=== PATIENT | male | born 1965 | race Caucasian/White ===

== ENCOUNTER 2023-08-11 10:26 | Inpatient (IN) ==
--- NOTE | 2023-08-11 10:35 | Emergency Department Note ---
History of Present Illness General Chief complaint: Back Injury/Pain Stated complaint: FALL, BACK INJURY, WC, HIGH BP Time Seen by Provider: 08/11/23 10:35 History of Present Illness Maximum Pain Intensity: 10 This is a 58-year-old male that presents to the emergency department via private vehicle with complaints of "fall, back injury, elevated blood pressure". Patient referred today by [facility]. Patient notes that earlier today he was at work. He was descending a flight of steps. He slipped and fell down 4 steps striking his back region against the steps. He was carrying a box at that time. He denies striking the head or loss of consciousness. He notes his only area of pain is in his right low back. He denies headache, neck pain, chest pain, abdominal pain. No pain in the extremities. He denies any lower extremity weakness, bowel or bladder incontinence, numbness or tingling in the genital region. He notes a history of hypertension currently on lisinopril plus metoprolol. He notes a history of elevated cholesterol as well. Patient denies any history of spine surgery. No known drug allergies. Patient states that when he was at [facility] he was referred here as they did not have imaging capability today and also were concerned about his elevated blood pressure. No blurred vision, chest pain, shortness of breath, headache, dizziness or numbness/tingling. Additional history obtained per review of the medical notes as faxed over from [facility] as documented regarding his visit today. They did note management of the left fifth digit wound which was bandaged. Tetanus vaccine not up-to-date. Home Medications Medication Instructions Recorded Confirmed Type lisinopril 40 mg tablet 40 mg PO [facility] 08/11/23 08/11/23 History metoprolol succinate 100 mg 100 mg PO QAM 08/11/23 08/11/23 History tablet,extended release 24 hr simvastatin 20 mg tablet 20 mg PO .EVERY 2 DAYS 08/11/23 08/11/23 History Allergies Allergy/AdvReac Type Severity Reaction Status Date / Time No Known Allergies Allergy Unverified 08/11/23 14:29 Past Med/Surg History Medical History Hyperlipidemia Hypertension Social History Smoking Status: Former smoker Tobacco Type: Smokeless Tobacco (Dip or Chew) Do You Dip or Chew Tobacco: Yes; Hx Alcohol Use: Yes Alcohol type: beer and hard liquor Hx Substance Use: No Preferred Language: French Communication Ability: Effective Director Of Managed Care Required: No Beliefs That Will Affect Care: None Current Living Situation: Spouse Feels Safe at Home: Yes Safety Concerns: Feels Safe At This Time Assistive Devices: None Review of Systems A total of 10 systems reviewed and were otherwise negative Physical Exam Vital Signs Vital Signs - 24 hr 08/11/23 10:29 08/11/23 12:11 08/11/23 12:32 Temperature 36.6 C Temperature Source Temporal Artery Scan Pulse Rate 92 H 82 Pulse Rate [Apical] 72 Respiratory Rate 18 18 Respiratory Effort / Characteristics Non-Labored Spontaneous Non-Labored Spontaneous Respiratory Depth Normal Normal Respiratory Pattern Regular Regular Blood Pressure 210/136 H Blood Pressure [Right Arm] 180/103 H Blood Pressure Mean 160 Blood Pressure Mean [Right Arm] 128 Blood Pressure Position [Right Arm] Lying Pulse Oximetry 94 97 Oxygen Delivery Method Room Air Room Air Sepsis Recent Fever Within 48 Hours No Sepsis New/Unexplained Change in Mental Status N/A Sepsis Action Taken by Nursing No Action Required 08/11/23 14:39 Temperature Temperature Source Pulse Rate 85 Pulse Rate [Apical] Respiratory Rate Respiratory Effort / Characteristics Respiratory Depth Respiratory Pattern Blood Pressure 218/133 H Blood Pressure [Right Arm] Blood Pressure Mean Blood Pressure Mean [Right Arm] Blood Pressure Position [Right Arm] Pulse Oximetry Oxygen Delivery Method Sepsis Recent Fever Within 48 Hours Sepsis New/Unexplained Change in Mental Status Sepsis Action Taken by Nursing VITAL SIGNS - Vital signs and nursing notes were reviewed. Hypertensive, afebrile. GENERAL -58-year-old male appearing his stated age. Communicates well with provider and answers questions appropriately. SKIN - Gross examination of the entire body surface demonstrates no lacerations to the body surface. Bandage noted to the left fifth digit. HEAD - Normocephalic, Atraumatic. No Gardiner's Sign or Raccoon's Eyes. EYES - PERRL with EOMI bilaterally. Without subconjunctival hemorrhage. Palpebral conjunctiva pink and moist with no injection. EARS - No deformities of external structures noted on gross examination bilaterally. NOSE - Midline and without cyanosis. No epistaxis or clear watery discharge noted. MOUTH/OROPHARYNX - Without perioral cyanosis. Tongue midline with equal elevation of palate bilaterally. NECK - No tenderness to palpation over the cervical spinous processes. No cervical paraspinal muscle tenderness noted. LUNGS - Chest wall symmetric without accessory muscle use, intercostals retractions, or central cyanosis. No flail chest or depressed fractures noted. Normal vesicular breath sounds CTA B/L. No wheezes, rales, or rhonchi appreciated. CARDIAC - RRR with S1/S2. No murmur, rubs, or gallops appreciated. ABDOMEN - Abdominal contour normal and without pulsations or visible masses. BS normoactive all four quadrants. No rebound tenderness or guarding noted. Negative Ryan's or Flores Kamara's Signs. No tenderness, palpable masses, hepatosplenomegaly, or ascites noted. MUSCULOSKELETALthere is point tenderness just to the right of spinous process 1 and 2 of the L-spine. Tenderness does extend into the paraspinous musculature in the right side of the superior L-spine. EXTREMITIES - No gross deformities noted of the extremities. +5/5 strength noted in UE/LE bilaterally. NEUROLOGIC - Cranial nerves II through XII grossly intact. No deficits on exam PSYCH -patient alert, oriented and pleasant on exam. Course Administered Medications Acetaminophen (Acetaminophen 325 Mg Tab) 650 mg PO Q4H PRN PRN Reason: Pain or Fever Stop: 09/10/23 17:54 Last Admin: 08/11/23 20:01 Dose: 650 mg Documented By: DORIE Oxycodone HCl (Oxycodone Hcl Ir 5 Mg Tab (Immediate Release)) 5 - 10 mg PO Q4H PRN PRN Reason: Pain Stop: 08/25/23 21:18 Last Admin: 08/11/23 22:15 Dose: 10 mg Documented By: DORIE Simvastatin (Simvastatin 20 Mg Tab) 20 mg PO Q48H MARKO Stop: 09/10/23 18:59 Last Admin: 08/11/23 20:06 Dose: 20 mg Documented By: KRT Discontinued Medications Chlorthalidone (Chlorthalidone 25 Mg Tab) 25 mg PO NOW ONE Stop: 08/11/23 16:46 Last Admin: 08/11/23 17:23 Dose: 25 mg Documented By: CAROLINE Ioversol (Optiray 320 500ml) 90 ml IV ONCE ONE Stop: 08/11/23 12:00 Last Admin: 08/11/23 12:00 Dose: 90 ml Documented By: ELICEO Labetalol HCl (Labetalol Hcl Iv 5 Mg/Ml 20ml) 10 mg IV NOW STA Stop: 08/11/23 14:35 Last Admin: 08/11/23 14:39 Dose: 10 mg Documented By: ELISABETH Co-signed By: HUGH Labetalol HCl (Labetalol Hcl 100 Mg Tab) 100 mg PO NOW STA Stop: 08/11/23 16:29 Last Admin: 08/11/23 16:52 Dose: 100 mg Documented By: ELISA Medical Decision Making Laboratory Data 08/11/23 12:16 08/11/23 11:09 Lab Results 08/11/23 08/11/23 08/11/23 Range/Units 11:09 12:16 13:10 WBC Cancelled 8.10 RBC Cancelled 4.95 Hgb Cancelled 14.7 Hct Cancelled 42.9 MCV Cancelled 86.7 MCH Cancelled 29.7 MCHC Cancelled 34.3 RDW Std Deviation Cancelled 39.4 RDW Coeff of Gamal Cancelled 12.7 Plt Count Cancelled 349 MPV Cancelled 10.2 Immature Gran % (Auto) Cancelled 0.4 Neut % (Auto) Cancelled 74.9 Lymph % (Auto) Cancelled 16.2 [place] % (Auto) Cancelled 7.3 Eos % (Auto) Cancelled 0.7 Baso % (Auto) Cancelled 0.5 Neut # (Auto) Cancelled 6.07 Lymph # (Auto) Cancelled 1.31 [place] # (Auto) Cancelled 0.59 Eos # (Auto) Cancelled 0.06 Baso # (Auto) Cancelled 0.04 Immature Gran # (Auto) Cancelled 0.03 Absolute Nucleated RBC Cancelled Nucleated RBC % (auto) Cancelled Neutrophils % (Manual) Cancelled Band Neutrophils % Cancelled Lymphocytes % (Manual) Cancelled Prolymphocyte % Cancelled Reactive Lymphs % (Man) Cancelled Monocytes % (Manual) Cancelled Eosinophils % (Manual) Cancelled Basophils % (Manual) Cancelled Metamyelocytes % (Man) Cancelled Myelocytes % (Man) Cancelled Promyelocytes % (Man) Cancelled Blast Cells % (Manual) Cancelled Plasma Cell % (Manual) Cancelled Other Cells % Cancelled Nucleated RBC % Cancelled Neutrophils # (Manual) Cancelled Band Neutrophils # Cancelled Total Absolute Neuts Cancelled Lymphocytes # (Manual) Cancelled Prolymphocyte # Cancelled Reactive Lymphs # Cancelled Total Abs Lymphocytes Cancelled Monocytes # (Manual) Cancelled Eosinophils # (Manual) Cancelled Basophils # (Manual) Cancelled Metamyelocytes # (Man) Cancelled Myelocytes # (Manual) Cancelled Promyelocytes # (Man) Cancelled Blast Cells # (Man) Cancelled Plasma Cell # (Manual) Cancelled Other Cells # Cancelled Nucleated RBCs # (Man) Cancelled Hypersegmented Neuts Cancelled Hyposegmented Neuts Cancelled Hypogranular Neuts Cancelled Large Granular Lymphs Cancelled # Lrg Granular Lymphs Cancelled Hairy Cells Cancelled Smudge Cells Cancelled Toxic Granulation Cancelled Toxic Vacuolation Cancelled Dohle Bodies Cancelled Rosi Rods Cancelled Platelet Estimate Cancelled Hypogranular Platelets Cancelled Giant Platelets Cancelled Platelet Satelliting Cancelled RBC Morphology Cancelled Polychromasia Cancelled Hypochromasia Cancelled Poikilocytosis Cancelled Basophilic Stippling Cancelled Anisocytosis Cancelled Microcytosis Cancelled Macrocytosis Cancelled Spherocytes Cancelled Pappenheimer Bodies Cancelled Sickle Cells Cancelled Target Cells Cancelled Tear Drop Cells Cancelled Ovalocytes Cancelled Stomatocytes Cancelled Schwarz-Massena Bodies Cancelled Echinocytes Cancelled Acanthocytes (Spur) Cancelled Rouleaux Cancelled RBC Agglutinates Cancelled Schistocytes Cancelled Sezary Cell Cancelled Sodium 139 (136-145) mmol/L Potassium 4.3 (3.5-5.1) mmol/L Chloride 106 (98-107) mmol/L Carbon Dioxide 24 (21-32) mmol/L Anion Gap 9 (3-11) BUN 17 (6-23) mg/dl Creatinine 0.90 (0.6-1.4) mg/dl Est Cr Clr Drug Dosing Not Reportable Est GFR ( Amer) 107.2 ml/min Est GFR (Non-Af Amer) 92.5 ml/min BUN/Creatinine Ratio 18.9 (10-20) Glucose 117 H (70-99(Fasting)) mg/dl Calcium 9.8 (8.6-10.3) mg/dl Total Bilirubin 0.5 (0.2-1.0) mg/dl AST 31 (13-39) U/L ALT 31 (7-52) U/L Alkaline Phosphatase 103 (34-104) U/L Troponin I High Sens 362.7 H* 373.7 H* (0-20) pg/ml Total Protein 7.7 (6.0-8.3) gm/dl Albumin 4.5 (3.4-5.0) gm/dl Globulin 3.2 (2.5-4.0) gm/dl Albumin/Globulin Ratio 1.4 (0.9-2) Blood Parasites ID Cancelled Imaging Data Radiologist's Impression: Lumbar Spine CT 08/11/23 10:50 CT SCAN OF THE LUMBAR SPINE WITH IV CONTRAST CLINICAL HISTORY: Fall. Low back pain. COMPARISON STUDY: No priors. TECHNIQUE: Following the IV administration of 90 cc of Optiray 320, CT scan of the lumbar spine is performed from the lower thoracic spine to the sacrum. Images are reviewed in the axial, sagittal, and coronal planes. 3-D reformats are created and assessed. IV contrast was administered without consultation. A dose lowering technique was utilized adhering to the principles of ALARA. CT DOSE: 1717.39 mGy.cm FINDINGS: The skeletal structures are well mineralized. There are acute right transverse process fractures of L1 and L2. No additional acute fracture is seen involving the lumbar spine. The remaining transverse and spinous processes appear intact. Vertebral body height and alignment are maintained. Small anterior and lateral marginal osteophytes are seen throughout. There is no spondylolysis. No lytic or blastic lesion is seen. The disc spaces are maintained. There is no CT evidence of large disc herniation or high-grade central canal stenosis. The visualized sacrum and bony pelvis appear intact. The paraspinous soft tissues are within normal limits. There is moderate to advanced atherosclerotic calcification of the abdominal aorta which is normal in caliber. No retroperitoneal lymphadenopathy is seen. IMPRESSION: 1. Acute right transverse process fractures of L1 and L2. 2. No additional fracture is seen involving the lumbar spine. There is no malalignment. ACT 112: Negative or not required by law. Electronically signed by: Arjun Carrillo M.D. 08/11/2023 12:[address] abd pelvis IV con only CLINICAL HISTORY: Fall, low back pain TECHNIQUE: Helical axial images of the abdomen and pelvis were obtained and displayed. Automated dose lowering techniques and/or adjustment according to patient size were utilized for this exam. This exam was performed with intravenous contrast. COMPARISON: None available at the time of this dictation. FINDINGS: Lower chest: No acute abnormality. Liver: Unremarkable. No focal lesions are seen. Gallbladder and biliary tree: No calcified gallstones. Normal caliber wall. No intra- or extrahepatic biliary ductal dilation. Pancreas: Unremarkable, no focal lesions. Spleen: Unremarkable. Adrenals: Unremarkable. Kidneys and ureters: Subcentimeter hypodensities are too small to characterize. Bladder: Unremarkable. Reproductive organs: Prostatomegaly is seen. Bowel: The appendix is normal. There is a small hiatal hernia. Lymph nodes Retroperitoneal: Subcentimeter iva hepatis nodes are noted. Pelvic: Unremarkable. Mesenteric: Unremarkable. Peritoneum: Normal. Vessels: Atherosclerotic calcifications are seen. Abdominal wall: Unremarkable. Bones: Minimal degenerative changes are seen. There are fractures of the right transverse processes of L1 and L2. IMPRESSION: Fractures of the right transverse processes of L1 and L2. No unstable fractures are seen. ACT 112: Negative or not required by law. Electronically signed by: Mikhail Garcia M.D. 08/11/2023 12:29 PM MDM Narrative Patient was seen and evaluated as above in room D05. Review was performed of triage nursing notes and vital signs. No previous visits for review in the EMR at time of evaluation. I did review the patient's faxed medical note from [facility] where he was referred from today. After obtaining a thorough history and physical examination the above work up was performed. Patient presents to us today status post mechanical fall as he slipped down some steps today. He initially presented to [facility] and was found to be quite hypertensive and in a lot of pain in his back. On assessment the patient declined pain medication. He is hypertensive on arrival. EKG reveals normal sinus rhythm at a rate of 78 bpm. QTc 435. QRS 82. No ST elevation. No previous for comparison. Options of care were discussed with the patient. IV access was established. Labs were drawn. I did recommend CT imaging of the abdomen/pelvis as well as L- spine to further evaluate his areas of injury. He does not have any findings to suggest injury to the head, neck or chest area. No injury to the extremities. No evidence of spinal cord injury on exam or by history. CT imaging as above. The patient does unfortunately have fractures of the right transverse process of L1 and L2. Abdominal/pelvis CT confirms same finding. Labs here reveal no leukocytosis or concerning anemia. No emergent metabolic disturbance. Mild hyperglycemia 117. The patient's troponin is elevated at 362. No chest pain. I did present the elevated troponin finding to the patient and recommended admission to the hospital noting his elevated blood pressure and findings today. Patient notes he is not willing to stay in the hospital. In trying to work with the patient's wishes, at 12:25 PM I did speak with the on-call vest baster, Dr. Benjamin. At this time we will hold off on stress testing noting the patient's back injury and blood pressure of 210/136. However, we will proceed with echocardiogram at this time. Per cardiology report this revealed: Normal left ventricular size and systolic function. EF 55 to 60%. No regional wall motion abnormalities. Mild concentric left ventricular hypertrophy. No significant valvular abnormalities. Normal estimated right ventricular systolic pressure. Technically difficult study. No prior study available For comparison. The patient's friend then did present to bedside. Repeat troponin was obtained and increased to 373. I continued to recommend admission. Patient was then amenable to staying in the hospital after reviewing benefit versus risk as well as indication. Patient was given IV labetalol for his continued elevated blood pressure here in the emergency department with suspected hypertensive emergency. Although initially the blood pressure could have been from pain, the patient notes that at rest he has very minimal pain and despite resting blood pressure continues to increase. Case discussed with the hospitalist service. Please refer to further documentation regarding his stay. Case was discussed with the attending physician. GCS: 15 In the evaluation and treatment of this patient the following differential diagnoses were entertained: Fracture, dislocation, subluxation, contusion, cord injury, hypertensive emergency, MS, dissection, among others Impression & Plan Fracture of transverse process of lumbar vertebra, Hypertensive emergency Discharge Plan Visit Data Chief Complaint: Back Injury/Pain Stated Complaint: FALL, BACK INJURY, WC, HIGH BP ED Provider: Kyle Hernandez ED Midlevel Provider: Molina Mccoy Discharge Problem: Fracture of transverse process of lumbar vertebra, Hypertensive emergency Patient Disposition: Admitted As Inpatient Condition: Good Discharge Instructions Interventions: ED Discharge Assessment Last Done: 08/11/23 17:46
[2023-08-11 11:47] LABS: Alanine Aminotransferase 31 U/L (7-52); Albumin Globulin Ratio 1.4 (0.9-2); Albumin Level 4.5 gm/dl (3.4-5.0); Alkaline Phosphatase 103 U/L (34-104); Anion Gap 9 (3-11); Aspartate Aminotransferase 31 U/L (13-39); BUN Creatinine Ratio 18.9 (10-20); Bilirubin,Total 0.5 mg/dl (0.2-1.0); Blood Urea Nitrogen 17 mg/dl (6-23); Calcium 9.8 mg/dl (8.6-10.3); Carbon Dioxide 24 mmol/L (21-32); Chloride 106 mmol/L (98-107); Est GFR (African American) 107.2 ml/min; Est GFR (Non-African American) 92.5 ml/min; Globulin 3.2 gm/dl (2.5-4.0); Glucose 117 mg/dl (70-99(Fasting)); Potassium 4.3 mmol/L (3.5-5.1); Sodium 139 mmol/L (136-145); Total Protein 7.7 gm/dl (6.0-8.3)
[2023-08-11 11:56] LABS: Troponin I High Sensitivity 362.7 pg/ml (0-20)
[2023-08-11] MEDS: OPTIRAY 320 500ml IV ONE (12:00)
--- NOTE | 2023-08-11 12:26 | XRay Report ---
SINGLE VIEW CHEST CLINICAL HISTORY: Fall. Elevated troponin. Back pain. FINDINGS: An AP, portable, upright chest radiograph is obtained. No prior studies are available for c omparison at the time of dictation. The cardiomediastinal silhouette is unremarkable. There is mild b ibasilar atelectasis. The lungs and pleural spaces are otherwise clear. No pneumothorax is seen. The bony thorax is grossly intact. IMPRESSION: No acute cardiopulmonary abnormality is identified. ACT 112: Negative or not required by law. Electronically signed by: Arjun Carrillo M.D. 08/11/2023 12:24 PM
[2023-08-11 12:28] LABS: Basophils # (auto) 0.04 K/uL (0.00-0.20); Basophils % (auto) 0.5 %; Eosinophils # (auto) 0.06 K/uL (0.00-0.50); Eosinophils % (auto) 0.7 %; Hematocrit (blood only) 42.9 % (42.0-52.0); Hemoglobin 14.7 g/dl (14.0-18.0); Immature Granulocytes # (auto) 0.03 K/uL (0.01-0.20); Immature Granulocytes % (auto) 0.4 %; Lymphocytes # (auto) 1.31 K/uL (1.20-3.40); Lymphocytes % (auto) 16.2 %; Mean Corpuscular Hemoglobin 29.7 pg (25.0-34.0); Mean Corpuscular Hgb Conc 34.3 g/dL (32.0-36.0); Mean Corpuscular Volume 86.7 fL (80.0-100.0); Mean Platelet Volume 10.2 fL (9.4-12.4); Monocytes # (auto) 0.59 K/uL (0.11-0.59); Monocytes % (auto) 7.3 %; Neutrophils # (auto) 6.07 K/uL (1.40-6.50); Neutrophils % (auto) 74.9 %; Platelet Count 349 K/uL (130-400); RDW Coefficient of Variation 12.7 % (11.5-14.5); RDW Standard Deviation 39.4 fL (36.4-46.3); Red Blood Count 4.95 M/uL (4.70-6.10)
--- NOTE | 2023-08-11 12:31 | CT Scan Report ---
CT abd pelvis IV con only CLINICAL HISTORY: Fall, low back pain TECHNIQUE: Helical axial images of the abdomen and pelvis were obtained and displayed. Automated dose lowering techniques and/or adjustment according to patient size were utilized for this exam. This e xam was performed with intravenous contrast. COMPARISON: None available at the time of this dictation. FINDINGS: Lower chest: No acute abnormality. Liver: Unremarkable. No focal lesions are seen. Gallbladder and biliary tree: No calcified gallstones. Normal caliber wall. No intra- or extrahepatic biliary ductal dilation. Pancreas: Unremarkable, no focal lesions. Spleen: Unremarkable. Adrenals: Unremarkable. Kidneys and ureters: Subcentimeter hypodensities are too small to characterize. Bladder: Unremarkable. Reproductive organs: Prostatomegaly is seen. Bowel: The appendix is normal. There is a small hiatal hernia. Lymph nodes Retroperitoneal: Subcentimeter iva hepatis nodes are noted. Pelvic: Unremarkable. Mesenteric: Unremarkable. Peritoneum: Normal. Vessels: Atherosclerotic calcifications are seen. Abdominal wall: Unremarkable. Bones: Minimal degenerative changes are seen. There are fractures of the right transverse processes o f L1 and L2. IMPRESSION: Fractures of the right transverse processes of L1 and L2. No unstable fractures are seen. ACT 112: Negative or not required by law. Electronically signed by: Mikhail Garcia M.D. 08/11/2023 12:29 PM
--- NOTE | 2023-08-11 12:42 | CT Scan Report ---
CT SCAN OF THE LUMBAR SPINE WITH IV CONTRAST CLINICAL HISTORY: Fall. Low back pain. COMPARISON STUDY: No priors. TECHNIQUE: Following the IV administration of 90 cc of Optiray 320, CT scan of the lumbar spine is pe rformed from the lower thoracic spine to the sacrum. Images are reviewed in the axial, sagittal, and coronal planes. 3-D reformats are created and assessed. IV contrast was administered without consulta tion. A dose lowering technique was utilized adhering to the principles of ALARA. CT DOSE: 1717.39 mGy.cm FINDINGS: The skeletal structures are well mineralized. There are acute right transverse process frac tures of L1 and L2. No additional acute fracture is seen involving the lumbar spine. The remaining tr ansverse and spinous processes appear intact. Vertebral body height and alignment are maintained. Sma ll anterior and lateral marginal osteophytes are seen throughout. There is no spondylolysis. No lytic or blastic lesion is seen. The disc spaces are maintained. There is no CT evidence of large disc her niation or high-grade central canal stenosis. The visualized sacrum and bony pelvis appear intact. Th e paraspinous soft tissues are within normal limits. There is moderate to advanced atherosclerotic ca lcification of the abdominal aorta which is normal in caliber. No retroperitoneal lymphadenopathy is seen. IMPRESSION: 1. Acute right transverse process fractures of L1 and L2. 2. No additional fracture is seen involving the lumbar spine. There is no malalignment. ACT 112: Negative or not required by law. Electronically signed by: Arjun Carrillo M.D. 08/11/2023 12:40 PM
--- NOTE | 2023-08-11 14:37 | History & Physical Report ---
Date of Service August 11, 2023 Assessment & Plan (1) Hypertensive emergency: Plan: Somewhat elevated as stress reaction to fall but in no current pain and with elevated troponin needs to treat as hypertensive emergency TTE ordered Switch metoprolol to Labetalol 100mg PO BID Continue usual lisinopril 40mg PO daily Start chlorthalidone 25mg PO daily (2) Elevated troponin: Plan: Suspect related to his exceedingly high BP. Will trend overnight with better BP management and TTE ordered (3) Fracture of transverse process of lumbar vertebra: Plan: Acetaminophen 650mg PO q4h PRN 1st line oxycodone 5-10 mg q4h PRN 2nd line Avoid NSAIDs (4) Hypertension: Plan: If unable to control overnight consider secondary workup (5) Hyperlipidemia: Plan: Continue simvastatin Plan VTE Prophylaxis - low risk Diet - Low Na, heart healthy Disposition - admit to PCU Admission and Anticipated Discharge Date Admission Date: Aug 11, 2023 History of Present Illness Chief Complaint: Back pain following a fall downstairs Primary Care Provider: NO PCP Johnson Peng is a 58 year old male who presents to the ER following a fall, referred from [facility] due to very high blood pressure. While carrying a box he slipped and fell down 4 steps hitting his lower back. No dizziness, chest pain or shortness of breath prior to the fall. He felt well prior to falling. Did not hit his head/neck or loose consciousness. No lower extremity weakness or change in sensation. Currently needs to urinate. Not yet had a bowel movement since falling. Lumbar CT showed acute right transverse process fracture of L1 and L2. In the ER he was noted to have a blood pressure highest of 229/139 with an elevated but stable troponin. He was referred to medicine for hypertensive emergency for further inpatient management of this. Allergies Allergy/AdvReac Type Severity Reaction Status Date / Time No Known Allergies Allergy Unverified 08/11/23 14:29 Home Medications Medication Instructions Recorded Confirmed Type lisinopril 40 mg tablet 40 mg PO QAM 08/11/23 08/11/23 History metoprolol succinate 100 mg 100 mg PO QAM 08/11/23 08/11/23 History tablet,extended release 24 hr simvastatin 20 mg tablet 20 mg PO .EVERY 2 DAYS 08/11/23 08/11/23 History Past Med/Surg History Medical History Hyperlipidemia Hypertension Social History Smoking Status: Former smoker Tobacco Type: Smokeless Tobacco (Dip or Chew) Do You Dip or Chew Tobacco: Yes; Hx Alcohol Use: Yes Alcohol type: beer and hard liquor Hx Substance Use: No Preferred Language: Burmese Communication Ability: Effective Agricultural Research Director Required: No Beliefs That Will Affect Care: None Current Living Situation: Spouse Feels Safe at Home: Yes Safety Concerns: Feels Safe At This Time Assistive Devices: None Review of Systems Review of Systems: All systems reviewed & are unremarkable except as noted in HPI & below Physical Exam Constitutional: WD/WN, vitals as above Eyes: + anicteric sclerae; normal pupil size ENMT: external ear and nose normal, oropharynx normal Respiratory: normal respiratory effort, lungs clear to auscultation Cardiovascular: RRR, no murmur, no edema Gastrointestinal (Abdomen): normal bowel sounds, soft, nontender, no hepatosplenomegaly Musculoskeletal: Spine: + lumbar spinal tenderness (Upper lumbar spinal central and right paraspinal pain) Skin: no rashes, warm and dry Neurologic: moves all extremities and awake; no focal motor deficits and not confused Psychiatric: A+Ox3, euthymic affect Results & Data Results & Data Vital Signs (Past 12 Hours) Vital Signs Temp Pulse Pulse Resp BP BP Pulse Ox 08/11/23 12:32 82 08/11/23 12:11 72 18 180/103 H 97 08/11/23 10:29 36.6 C 92 H 18 210/136 H 94 O2 Del Method 08/11/23 12:32 08/11/23 12:11 Room Air 08/11/23 10:29 Room Air Laboratory Results Abnormal lab results 08/11/23 08/11/23 08/11/23 Range/Units 11:09 13:10 18:41 Glucose 117 H (70-99(Fasting)) mg/dl Troponin I High Sens 362.7 H* 373.7 H* 377.0 H* (0-20) pg/ml Diagnostic Findings SINGLE VIEW CHEST CLINICAL HISTORY: Fall. Elevated troponin. Back pain. FINDINGS: An AP, portable, upright chest radiograph is obtained. No prior studies are available for comparison at the time of dictation. The cardiomediastinal silhouette is unremarkable. There is mild bibasilar atelectasis. The lungs and pleural spaces are otherwise clear. No pneumothorax is seen. The bony thorax is grossly intact. IMPRESSION: No acute cardiopulmonary abnormality is identified. CT abd pelvis IV con only CLINICAL HISTORY: Fall, low back pain TECHNIQUE: Helical axial images of the abdomen and pelvis were obtained and displayed. Automated dose lowering techniques and/or adjustment according to patient size were utilized for this exam. This exam was performed with i ntravenous contrast. COMPARISON: None available at the time of this dictation. FINDINGS: Lower chest: No acute abnormality. Liver: Unremarkable. No focal lesions are seen. Gallbladder and biliary tree: No calcified gallstones. Normal caliber wall. No intra- or extrahepatic biliary ductal dilation. Pancreas: Unremarkable, no focal lesions. Spleen: Unremarkable. Adrenals: Unremarkable. Kidneys and ureters: Subcentimeter hypodensities are too small to characterize. Bladder: Unremarkable. Reproductive organs: Prostatomegaly is seen. Bowel: The appendix is normal. There is a small hiatal hernia. Lymph nodes Retroperitoneal: Subcentimeter iva hepatis nodes are noted. Pelvic: Unremarkable. Mesenteric: Unremarkable. Peritoneum: Normal. Vessels: Atherosclerotic calcifications are seen. Abdominal wall: Unremarkable. Bones: Minimal degenerative changes are seen. There are fractures of the right transverse processes of L1 and L2. IMPRESSION: Fractures of the right transverse processes of L1 and L2. No unstable fractures are seen. CT SCAN OF THE LUMBAR SPINE WITH IV CONTRAST CLINICAL HISTORY: Fall. Low back pain. COMPARISON STUDY: No priors. TECHNIQUE: Following the IV administration of 90 cc of Optiray 320, CT scan of the lumbar spine is performed from the lower thoracic spine to the sacrum. Images are reviewed in the axial, sagittal, and coronal planes. 3-D reformats are created and assessed. IV contrast was administered without consultation. A dose lowering technique was utilized adhering to the principles of ALARA. CT DOSE: 1717.39 mGy.cm FINDINGS: The skeletal structures are well mineralized. There are acute right transverse process fractures of L1 and L2. No additional acute fracture is seen involving the lumbar spine. The remaining transverse and spinous processes appear intact. Vertebral body height and alignment are maintained. Small anterior and lateral marginal osteophytes are seen throughout. There is no spondylolysis. No lytic or blastic lesion is seen. The disc spaces are maintained. There is no CT evidence of large disc herniation or high-grade central canal stenosis. The visualized sacrum and bony pelvis appear intact. The paraspinous soft tissues are within normal limits. There is moderate to advanced atherosclerotic calcification of the abdominal aorta which is normal in caliber. No retroperitoneal lymphadenopathy is seen. IMPRESSION: 1. Acute right transverse process fractures of L1 and L2. 2. No additional fracture is seen involving the lumbar spine. There is no malalignment. Medications Administered ER Medications Given: Labetalol 10mg IV ECG Rate (beats per minute): 78 Rhythm: normal sinus Findings: no acute ischemic change Comparison ECG Date: no prior available Code Status & VTE Plan Code Status Full VTE Prophylaxis Plan VTE Prophylaxis will be ordered: No PG Care Time/CCT Total # of Minutes Spent Total Time Spent with Patient: Total time spent is greater than 50% in coordination of care (as documented) at patient's floor/unit and/or counseling patient: Coding Level of Care Code 14759 INT INP/OBS CARE 2/55MIN Diagnoses Hypertensive emergency I16.1 Elevated troponin R79.89 Fracture of transverse process of lumbar vertebra S32.009A Hypertension I10 Hyperlipidemia E78.5
[2023-08-11] MEDS: LABETALOL HCL IV 5 MG/ML 20ML IV STA (14:39)
[2023-08-11] MEDS: LABETALOL HCL 100 MG TAB PO STA (16:52)
[2023-08-11] MEDS: CHLORTHALIDONE 25 MG TAB PO ONE (17:23)
--- NOTE | 2023-08-11 17:38 | XCELERA ---
[id number]
[2023-08-11] MEDS: ACETAMINOPHEN 325 MG TAB PO PRN (20:01)
[2023-08-11] MEDS: SIMVASTATIN 20 MG TAB PO SCH (20:06)
[2023-08-11] MEDS ORDERED: ACETAMINOPHEN 500 MG TAB PO SCH (21:00)
[2023-08-11] MEDS ORDERED: LABETALOL HCL 100 MG TAB PO SCH (21:00)
[2023-08-11] MEDS: oxyCODONE HCL IR 5 MG TAB (IMMEDIATE RELEASE) PO PRN (22:15)
--- NOTE | 2023-08-12 06:18 | Electrocardiogram Report ---
Test Reason : Blood Pressure : / mmHG Vent. Rate : 078 BPM Atrial Rate : 078 BPM P-R Int : 162 ms QRS Dur : 082 ms QT Int : 382 ms P-R-T Axes : 056 013 030 degrees QTc Int : 435 ms Normal sinus rhythm Normal ECG No previous ECGs available Confirmed by Alfonos Benjamin ([id number]) on 08/12/2023 6:17:24 AM Referred By: REFERRED SELF Confirmed By:Alfonso Benjamin
[2023-08-12] MEDS: DIPHTHER/TETAN/PERTUS Vaccine (Tdap, Adol/Adult) 0.5mL IM ONE (06:19)
[2023-08-12 08:06] LABS: Basophils # (auto) 0.05 K/uL (0.00-0.20); Basophils % (auto) 0.7 %; Eosinophils # (auto) 0.18 K/uL (0.00-0.50); Eosinophils % (auto) 2.6 %; Hematocrit (blood only) 45.3 % (42.0-52.0); Hemoglobin 15.2 g/dl (14.0-18.0); Immature Granulocytes # (auto) 0.03 K/uL (0.01-0.20); Immature Granulocytes % (auto) 0.4 %; Lymphocytes # (auto) 1.73 K/uL (1.20-3.40); Lymphocytes % (auto) 25.2 %; Mean Corpuscular Hemoglobin 29.6 pg (25.0-34.0); Mean Corpuscular Hgb Conc 33.6 g/dL (32.0-36.0); Mean Corpuscular Volume 88.3 fL (80.0-100.0); Mean Platelet Volume 9.7 fL (9.4-12.4); Monocytes # (auto) 0.68 K/uL (0.11-0.59); Monocytes % (auto) 9.9 %; Neutrophils % (auto) 61.2 %; Platelet Count 304 K/uL (130-400); RDW Coefficient of Variation 12.9 % (11.5-14.5); RDW Standard Deviation 41.3 fL (36.4-46.3); Red Blood Count 5.13 M/uL (4.70-6.10); White Blood Count 6.87 K/ul (4.8-10.8)
[2023-08-12 09:13] LABS: Albumin Globulin Ratio 1.4 (0.9-2); BUN Creatinine Ratio 14.3 (10-20); Bilirubin,Total 1.3 mg/dl (0.2-1.0); Calcium 9.3 mg/dl (8.6-10.3); Creatinine Clr Calc Pharmacy 81.8 ml/min; Est GFR (Non-African American) 76.8 ml/min; Globulin 2.8 gm/dl (2.5-4.0); Potassium 4.3 mmol/L (3.5-5.1); Total Protein 6.8 gm/dl (6.0-8.3)
[2023-08-12] MEDS: LABETALOL HCL 100 MG TAB PO SCH (09:31)
[2023-08-12] MEDS: CHLORTHALIDONE 25 MG TAB PO SCH (09:32)
[2023-08-12] MEDS: lisinopril 40 MG TAB PO SCH (09:33)
[2023-08-12] MEDS: ACETAMINOPHEN 325 MG TAB PO SCH (12:14)
--- NOTE | 2023-08-12 16:58 | Orthopedic Consultation ---
Date of Service August 12, 2023 History of Present Illness Reason for Consultation: . Spinous process fractures Requesting Physician: . Attending Physician: Tomy Hammond . 58-year-old gentleman who was at work today, fell on some stairs while carrying a box while at work. His back on the right side hit against the stairs, causing significant back pain. He was seen at urgent care and then sent to the emergency room at [facility], CT scan of the lumbar spine revealed the patient to have transverse process fractures on the right at L1 and L2. Patient reports no significant prior injuries in this region, no other specific orthopedic type injuries. Exam reveals the patient to indicate pain in the right flank upper lumbar region, mildly tender to palpation, but not tender in the midline. He has intact motor strength in the lower extremities, no evidence of nerv neural compression. Review of CT scan images of the lumbar spine from today, August 11, 2023 reveals normal overall alignment no evidence of compression fracture of the vertebra, transverse process fractures on the right at L1 and L2, this is my separate interpretation. Impression: Status post fall on stairs with right flank/lumbar pain with transverse process fractures on the right at L1 and L2. Plan: Today I talked with the patient, I recommended the patient mobilize with physical therapy as tolerated and appropriate pain medication. He does not need any brace, he indicated to me that Workmen's Comp. is rescheduled an appointment for him in 2 days for follow-up. I recommended today that when the patient is discharged not to do any bending lifting twisting, this will probably hold as a general plan until his symptoms subside. Allergies Allergy/AdvReac Type Severity Reaction Status Date / Time No Known Allergies Allergy Unverified 08/11/23 14:29 Home Medications Medication Instructions Recorded Confirmed Type lisinopril 40 mg tablet 40 mg PO QAM 08/11/23 08/11/23 History metoprolol succinate 100 mg 100 mg PO QAM 08/11/23 08/11/23 History tablet,extended release 24 hr simvastatin 20 mg tablet 20 mg PO .EVERY 2 DAYS 08/11/23 08/11/23 History Past Med/Surg History Medical History Hyperlipidemia Hypertension Social History Smoking Status: Former smoker Tobacco Type: Smokeless Tobacco (Dip or Chew) Do You Dip or Chew Tobacco: Yes; Hx Alcohol Use: Yes Alcohol type: beer and hard liquor Hx Substance Use: No Preferred Language: Italian Communication Ability: Effective Transaction Processor Required: No Beliefs That Will Affect Care: None Current Living Situation: Spouse Feels Safe at Home: Yes Safety Concerns: Feels Safe At This Time Assistive Devices: None Review of Systems All systems reviewed & are unremarkable except as noted in HPI & below. Physical Exam . Results & Data Results & Data Laboratory Results . Diagnostic Findings . PG Care Time/CCT Total # of Minutes Spent Total Time Spent with Patient: Total time spent is greater than 50% in coordination of care (as documented) at patient's floor/unit and/or counseling patient: Coding Level of Care Code 43190 IN/OBS CONSULT LVL 3,45M
--- NOTE | 2023-08-12 23:39 | Hospitalist Progress Note ---
Date of Service August 12, 2023 Assessment & Plan (1) Hypertensive emergency: Plan: Somewhat elevated as stress reaction to fall but in no current pain and with elevated troponin needs to treat as hypertensive emergency TTE ordered On admission: Switch metoprolol to Labetalol 100mg PO BID Continue usual lisinopril 40mg PO daily Start chlorthalidone 25mg PO daily on 08/12: BP has improved. will cut back on lisinopril to 20 mg on 08/13 (2) Elevated troponin: Plan: Suspect related to his exceedingly high BP. Will trend overnight with better BP management and TTE ordered (3) Fracture of transverse process of lumbar vertebra: Plan: Acetaminophen 650mg PO placed on scheduled QID oxycodone 5-10 mg q4h PRN 2nd line Avoid NSAIDs Consulted ortho spine no twisting or bending PT/OT ordered (4) Hypertension: Plan: improved. (5) Hyperlipidemia: Plan: Continue simvastatin Plan VTE Prophylaxis - low risk Diet - Low Na, heart healthy Disposition - admit to PCU Admission and Anticipated Discharge Date Admission Date: August 11, 2023 Subjective Patient reports feeling better. Review of Systems Review of Systems: All systems reviewed & are unremarkable except as noted in HPI & below Results & Data Results & Data Vital Signs (Past 12 Hours) Vital Signs Temp Pulse Pulse Resp BP Pulse Ox O2 Del Method 08/12/23 23:25 Room Air 08/12/23 20:09 36.5 C 68 20 128/81 95 Room Air 08/12/23 18:28 72 08/12/23 15:21 36.6 C 66 18 128/76 97 Room Air 08/12/23 11:48 36.5 C 70 19 135/74 94 Room Air PG Care Time/CCT Total # of Minutes Spent Total Time Spent with Patient: Total time spent is greater than 50% in coordination of care (as documented) at patient's floor/unit and/or counseling patient: Coding Level of Care Code 99092 SUB INP/OBS CARE 2/35MIN Diagnoses Hypertensive emergency I16.1 Elevated troponin R79.89 Fracture of transverse process of lumbar vertebra S32.009A Hypertension I10 Hyperlipidemia E78.5
[2023-08-13 07:15] LABS: Hematocrit (blood only) 44.2 % (42.0-52.0); Mean Corpuscular Hemoglobin 29.8 pg (25.0-34.0); Mean Corpuscular Hgb Conc 33.9 g/dL (32.0-36.0); Mean Corpuscular Volume 87.9 fL (80.0-100.0); Mean Platelet Volume 9.4 fL (9.4-12.4); Platelet Count 280 K/uL (130-400); RDW Coefficient of Variation 12.9 % (11.5-14.5); RDW Standard Deviation 41.1 fL (36.4-46.3); Red Blood Count 5.03 M/uL (4.70-6.10); White Blood Count 8.09 K/ul (4.8-10.8)
[2023-08-13 07:46] LABS: BUN Creatinine Ratio 12.3 (10-20); Calcium 8.9 mg/dl (8.6-10.3); Creatinine Clr Calc Pharmacy 43.2 ml/min; Est GFR (African American) 42.1 ml/min; Est GFR (Non-African American) 36.3 ml/min
[2023-08-13] MEDS ORDERED: lisinopril 20 MG TAB PO SCH (09:00)
[2023-08-13] MEDS: METOPROLOL SUCC 50MG EXT REL TAB PO SCH (09:07)
--- NOTE | 2023-08-13 17:41 | Discharge Summary ---
Date of Service August 13, 2023 Admission HPI Per Admitting Provider Johnson Peng is a 58 year old male who presents to the ER following a fall, referred from [employer] [facility] due to very high blood pressure. While carrying a box he slipped and fell down 4 steps hitting his lower back. No dizziness, chest pain or shortness of breath prior to the fall. He felt well prior to falling. Did not hit his head/neck or loose consciousness. No lower extremity weakness or change in sensation. Currently needs to urinate. Not yet had a bowel movement since falling. Lumbar CT showed acute right transverse process fracture of L1 and L2. In the ER he was noted to have a blood pressure highest of 229/139 with an elevated but stable troponin. He was referred to medicine for hypertensive emergency for further inpatient management of this. Principal Diagnosis back pain with fracture of vertebral process hypertensive urgency secondary to pain from fracture Discharge Exam some point tenderness is moving well in room no issues with sob Discharge Data Allergies Allergy/AdvReac Type Severity Reaction Status Date / Time No Known Allergies Allergy Unverified 08/11/23 14:29 Consultations 08/11/23 15:04 ED Decision to Admit Stat 08/12/23 11:13 Consult Orthopedic Spine Surgery Routine Ordered Studies Abdomen/Pelvis CT 08/11/23 10:50 CT abd pelvis IV con only CLINICAL HISTORY: Fall, low back pain TECHNIQUE: Helical axial images of the abdomen and pelvis were obtained and displayed. Automated dose lowering techniques and/or adjustment according to patient size were utilized for this exam. This exam was performed with intravenous contrast. COMPARISON: None available at the time of this dictation. FINDINGS: Lower chest: No acute abnormality. Liver: Unremarkable. No focal lesions are seen. Gallbladder and biliary tree: No calcified gallstones. Normal caliber wall. No intra- or extrahepatic biliary ductal dilation. Pancreas: Unremarkable, no focal lesions. Spleen: Unremarkable. Adrenals: Unremarkable. Kidneys and ureters: Subcentimeter hypodensities are too small to characterize. Bladder: Unremarkable. Reproductive organs: Prostatomegaly is seen. Bowel: The appendix is normal. There is a small hiatal hernia. Lymph nodes Retroperitoneal: Subcentimeter iva hepatis nodes are noted. Pelvic: Unremarkable. Mesenteric: Unremarkable. Peritoneum: Normal. Vessels: Atherosclerotic calcifications are seen. Abdominal wall: Unremarkable. Bones: Minimal degenerative changes are seen. There are fractures of the right transverse processes of L1 and L2. IMPRESSION: Fractures of the right transverse processes of L1 and L2. No unstable fractures are seen. ACT 112: Negative or not required by law. Electronically signed by: Mikhail Garcia M.D. 08/11/2023 12:[address] 08/11/23 10:50 CT SCAN OF THE LUMBAR SPINE WITH IV CONTRAST CLINICAL HISTORY: Fall. Low back pain. COMPARISON STUDY: No priors. TECHNIQUE: Following the IV administration of 90 cc of Optiray 320, CT scan of the lumbar spine is performed from the lower thoracic spine to the sacrum. Nellie ges are reviewed in the axial, sagittal, and coronal planes. 3-D reformats are created and assessed. IV contrast was administered without consultation. A dose lowering technique was utilized adhering to the principles of ALARA. CT DOSE: 1717.39 mGy.cm FINDINGS: The skeletal structures are well mineralized. There are acute right transverse process fractures of L1 and L2. No additional acute fracture is seen involving the lumbar spine. The remaining transverse and spinous processes appear intact. Vertebral body height and alignment are maintained. Small anterior and lateral marginal osteophytes are seen throughout. There is no spondylolysis. No lytic or blastic lesion is seen. The disc spaces are maintained. There is no CT evidence of large disc herniation or high-grade central canal stenosis. The visualized sacrum and bony pelvis appear intact. The paraspinous soft tissues are within normal limits. There is moderate to advanced atherosclerotic calcification of the abdominal aorta which is normal in caliber. No retroperitoneal lymphadenopathy is seen. IMPRESSION: 1. Acute right transverse process fractures of L1 and L2. 2. No additional fracture is seen involving the lumbar spine. There is no malalignment. Electronically signed by: Arjun Carrillo M.D. 08/11/2023 12:40 PM Chest X-Ray 08/11/23 12:04 SINGLE VIEW CHEST CLINICAL HISTORY: Fall. Elevated troponin. Back pain. FINDINGS: An AP, portable, upright chest radiograph is obtained. No prior studies are available for comparison at the time of dictation. The cardiomediastinal silhouette is unremarkable. There is mild bibasilar atelectasis. The lungs and pleural spaces are otherwise clear. No pneumothorax is seen. The bony thorax is grossly intact. IMPRESSION: No acute cardiopulmonary abnormality is identified. Electronically signed by: Arjun Carrillo M.D. 08/11/2023 12:24 PM Hospital Course (1) Hypertensive emergency: Somewhat elevated as stress reaction to fall elevated troponin secondary to demand ischemia, needs to treat as hypertensive emergency TTE preserved EF, no RWMA resume metoprolol , delay restart of kwesi due to SONIA continue chlorthalidone 25mg PO daily (2) Elevated troponin: Suspect related to his exceedingly high BP. no signs of acs, demand ischemia (3) Fracture of transverse process of lumbar vertebra: Acetaminophen 1000mg tid oxycodone 5-10 mg q4h PRN 2nd line Consulted ortho spine will follow up as is possible worker comp no twisting or bending (4) Hypertension: improved. (5) Hyperlipidemia: Continue simvastatin Plan VTE Prophylaxis - low risk Total Time Total Time Spent Total Time Spent (In Minutes): It required greater than 30 minutes to prepare this patient for discharge. Discharge Plan Discharge Items Patient Disposition: Home - Self-Care Reason For Visit: HYPERTENSIVE EMERGENCY Discharge Diagnosis: lumbar spine transverse process fracture hypertensive urgency Condition on Discharge: Good Activity: Per Instructions section Activity Comment: per workers comp Non-emergency contact: Primary Care Provider and Surgeon Call non-emergency contact if: your symptoms worsen Follow-up/Referrals: Lucio Paulino D.O. [Primary Care Provider] - 08/19/23 11:00 am Diet: Regular Addtl Attending Provider Instructions: please follow up with Dr Paulino and Dr Medina Take 1000mg tylenol three times a day for a week use lidocaine patches daily' use oxycodone carefully Pending Studies at Discharge: No Stand-Alone Forms: [facility] [place], Pain - Opioid Pain Management, Work/School Release, Smoking Cessation Medications and DC Order Prescriptions: New lidocaine 5 % adhesive patch,medicated 1 patch topical DAILY Qty: 15 0RF Rx Instructions: leave on most painful area for up to 12 hrs oxycodone 5 mg tablet 5 - 10 mg PO Q8H PRN (Reason: pain) Qty: 20 0RF Continued metoprolol succinate 100 mg tablet extended release 24 hr 100 mg PO QAM simvastatin 20 mg tablet 20 mg PO .EVERY 2 DAYS Held lisinopril 40 mg tablet 40 mg PO QAM Hold Instructions: Resume on 08/17/23. Discharge Orders: Discharge Order (Routine); Ordered 08/13/23 Ordered By: Amaury Rodríguez/Other Patient Handouts: Blood Pressure Check Steps, ED Hypertension, Established, ED Transverse Process Fracture Admission Data Admit Date/Time: 08/11/23 14:47 Attending Provider: Amaury Mcnamara Admit Provider: Jose Rao Primary Care Provider: Lucio Paulino Other Providers: Jose Rao; Abundio Randall Other Interventions: Discharge Summary Assessment (RN) Last Done: 08/13/23 12:24 Coding Level of Care Code 07172 INP/OBS DISCH >30 MIN Diagnoses Hypertensive emergency I16.1 Elevated troponin R79.89 Fracture of transverse process of lumbar vertebra S32.009A Hypertension I10 Hyperlipidemia E78.5
== END 2023-08-13 12:58 | disposition home or self-care (01) | DRG 552 ==
LOC: ED 10:26 → EDINP 14:47 → SUATTDRO 14:47 → 2S 17:46